=== PATIENT | male | born 1980 | race Caucasian/White ===

== ENCOUNTER 2022-01-06 06:01 | Day surgery (SDC) | payer OTHER ==
[2022-01-04 16:52] VITALS: BMI 29.5
[2022-01-06] MEDS ORDERED: EPINEPHrine 1:1,000 1,000 MCG/ML ML ONE (07:05)
[2022-01-06] MEDS ORDERED: LIDOCAINE HCL 2% (20ML MULTI-DOSE VIAL) ONE (07:10)
[2022-01-06] MEDS ORDERED: ROPIVACAINE HCL 0.5% 30ML VIAL ONE (07:10)
[2022-01-06] MEDS ORDERED: MIDAZOLAM HCL 2 MG/2 ML SINGLE DOSE VIAL ONE ×2 (07:13→10:17)
[2022-01-06] MEDS ORDERED: PROPOFOL 20 ML ONE ×4 (07:24→10:07)
[2022-01-06] MEDS ORDERED: KETAMINE HCL 200 MG/20 ML VIAL ONE (08:19)
[2022-01-06] MEDS ORDERED: oxyCODONE HCL 5 MG TABLET PO PRN (11:58)
[2022-01-06] MEDS ORDERED: ONDANSETRON 4 MG/2 ML VIAL IVPUSH PRN (11:58)
[2022-01-06] MEDS ORDERED: LACTATED RINGERS SOLUTION 1,000 ML IV SCH (12:00)
[2022-01-06 12:28] VITALS: TEMP 98.2
[2022-01-06 13:00] VITALS: BP 146/75; PULSE 85
== END 2022-01-06 15:58 | disposition left against medical advice (07) ==
LOC: FASU 06:01
PROVIDERS: ATTEND Orthopaedic Surgery Sports Medicine
PROC: 0RNJ4ZZ Release Right Shoulder Joint, Percutaneous Endoscopic Approach (ICD-10-PCS; 2022-01-06)
PROC: 0RBJ4ZZ Excision of Right Shoulder Joint, Percutaneous Endoscopic Approach (ICD-10-PCS; 2022-01-06)
PROC: 0LQ14ZZ Repair Right Shoulder Tendon, Percutaneous Endoscopic Approach (ICD-10-PCS; principal; 2022-01-06 08:25)
PROC: 0LS34ZZ Reposition Right Upper Arm Tendon, Percutaneous Endoscopic Approach (ICD-10-PCS; 2022-01-06 08:25)
DX: M75.121 Complete rotator cuff tear or rupture of right shoulder, not specified as traumatic (principal)
CPT/HCPCS: 94760